=== PATIENT | male | born 1950 | race Caucasian/White ===

== ENCOUNTER 2020-03-21 08:40 | Emergency (ER) | payer MEDICARE, OTHER ==
[~2020-03-21] VITALS: Ht 180.3 cm; Wt 103.4 kg
[2020-03-21] MEDS ORDERED: NORCO 7.5-3251 EACH PO (09:16)
[2020-03-21] MEDS ORDERED: FAMCICLOVIR500 MG PO (09:16)
== END 2020-03-21 09:25 | disposition home or self-care (01) ==
LOC: ED 08:40
DX: B02.9 Zoster without complications (principal); Z88.2 Allergy status to sulfonamides
CPT/HCPCS: 99282